=== PATIENT | female | born 1965 | race African-American/Black ===

== ENCOUNTER → 2018-10-11 | Outpatient (CLI) | payer OTHER ==
--- NOTE | 2018-10-11 17:00 | Diagnostic Imaging Report ---
Thyroid ultrasound History: Thyroid nodules. Comparison: None Findings: The thyroid echotexture is unremarkable. Vascularity is normal. The right lobe measures 4.9 x 1.5 x 1.8 cm. The left lobe measures 4.9 x 1.8 x 1.9 cm. The isthmus measures 0.4 cm. Nodules (measurements are AP, transverse, craniocaudal): Right Lobe: In the right upper pole thyroid laterally, there is a 0.4 x 0.3 x 0.3 cm predominantly cystic, anechoic wider than tall, smooth marginated nodule without calcification (0 points, TR 1). In the right mid pole, there is a 0.7 x 0.4 x 0.5 cm spongiform, heterogeneous nodule that is wider than tall, smoothly marginated, and without calcification (0 points, TR 1). Left Lobe: There are multiple left-sided thyroid nodules. The largest nodule is in the inferior pole medially, measuring up to 1.9 x 0.8 x 1.2 cm. This nodule is mixed solid and cystic, predominately anechoic, wider than tall, smoothly marginated, with punctate echogenic foci (4 points, TR 4). There is an additional inferior pole thyroid nodule measuring up to 1.6 x 0.8 x 1.2 cm. The nodule is mixed solid cystic, predominately anechoic, wider than tall, smoothly marginated (4 points, TR 4). Isthmus: There is a 0.8 x 0.4 x 0.5 cm predominately cystic, anechoic, wider than tall, smoothly marginated nodule without calcification (0 points, TR 1). Inferiorly, there is a 0.6 x 0.3 x 0.5 hypoechoic nodule that is likely cystic. This nodule is wider than tall, smoothly marginated, and without calcification (0 points, TR 1). Lymph Nodes: No cervical lymph nodes are identified. Parathyroids: Not visualized. IMPRESSION: Bilateral thyroid nodules as above. The two left inferior pole mixed solid cystic thyroid nodules are moderately suspicious, and meet criteria for FNA. Signed by: Dr. Alisha Cordova MD on 10/11/2018 4:57 PM
== END ==
LOC: US 15:30
PROVIDERS: ATTEND Family Medicine
DX: E04.2 Nontoxic multinodular goiter (principal)
CPT/HCPCS: 76536

== ENCOUNTER → 2018-12-15 | Outpatient (CLI) | payer OTHER ==
--- NOTE | 2018-12-27 08:21 | Diagnostic Imaging Report ---
#[id number] - MGSCRBIL #BILATERAL DIGITAL SCREENING MAMMOGRAM WITH CAD: 12/15/2018 CLINICAL: Routine screening. Comparison is made to exam dated: 05/26/2014 mammogram - [facility]. The tissue of both breasts is heterogeneously dense. This may lower the sensitivity of mammography. Current study was also evaluated with a Computer Aided Detection (CAD) system. There is a benign mass and a calcification in the left breast. No significant masses, calcifications, or other findings are seen in either breast. There has been no significant interval change. IMPRESSION: BENIGN There is no mammographic evidence of malignancy. A 1 year screening mammogram is recommended. The patient will be notified by letter of the results. GURPREET PINK M.D., mc/jovanni:12/24/2018 11:08:46 Charting Clerk: Whitley LAW)(Sole), [facility] letter sent: Normal Exam Mammogram BI-RADS: 2 Benign
== END ==
LOC: MAMMO 14:32
PROVIDERS: ATTEND Family Medicine
DX: Z12.31 Encounter for screening mammogram for malignant neoplasm of breast (principal)
CPT/HCPCS: 77067

== ENCOUNTER → 2020-01-09 | Outpatient (CLI) | payer OTHER ==
--- NOTE | 2020-01-11 13:41 | Diagnostic Imaging Report ---
#[id number] - MGSCRBIL #BILATERAL DIGITAL SCREENING MAMMOGRAM WITH CAD: 01/09/2020 CLINICAL: Routine screening. Comparison is made to exams dated: 12/15/2018 mammogram - [facility] and 05/26/2014 mammogram - [facility]. The tissue of both breasts is heterogeneously dense. This may lower the sensitivity of mammography. Current study was also evaluated with a Computer Aided Detection (CAD) system. There are benign lymph nodes in both breasts. There also is a benign mass and a calcification in the left breast. No significant masses, calcifications, or other findings are seen in either breast. There has been no significant interval change. IMPRESSION: BENIGN There is no mammographic evidence of malignancy. A 1 year screening mammogram is recommended. The patient will be notified by letter of the results. DIAZ oliveira/jovanni:01/11/2020 11:36:22 Route Deliverer: Whitley MCNEIL(Uday)(Sole), [facility] letter sent: Compared to Prior B9 Mammogram BI-RADS: 2 Benign
== END ==
LOC: MAMMO 08:57
PROVIDERS: ATTEND Family Medicine
DX: Z12.31 Encounter for screening mammogram for malignant neoplasm of breast (principal)
CPT/HCPCS: 77067

== ENCOUNTER → 2020-07-25 | Outpatient (CLI) | payer OTHER | LOC: US 15:36 | DX: E04.1 Nontoxic single thyroid nodule (principal) | CPT/HCPCS: 76536 ==

== ENCOUNTER → 2021-08-02 | Outpatient (CLI) | payer OTHER | LOC: MAMMO 14:38 | PROVIDERS: ATTEND Family Medicine | DX: Z12.31 Encounter for screening mammogram for malignant neoplasm of breast (principal) | CPT/HCPCS: 77067 ==

== ENCOUNTER → 2022-09-18 | Outpatient (CLI) | payer OTHER | LOC: MAMMO 14:15 | PROVIDERS: ATTEND Family Medicine | DX: Z12.31 Encounter for screening mammogram for malignant neoplasm of breast (principal) | CPT/HCPCS: 77067 ==

== ENCOUNTER → 2022-09-18 | Outpatient (CLI) | payer OTHER | LOC: US 13:34 | DX: E04.2 Nontoxic multinodular goiter (principal) | CPT/HCPCS: 76536 ==

== ENCOUNTER → 2022-10-02 | Outpatient (CLI) | payer OTHER | LOC: MAMMO 13:15 | PROVIDERS: ATTEND Family Medicine | DX: N64.89 Other specified disorders of breast (principal) ==